=== PATIENT | male | born 1950 | race Caucasian/White ===

== ENCOUNTER 2017-08-21 10:58 | Emergency (ER) | payer OTHER ==
[~2017-08-21] VITALS: Ht 172.7 cm; Wt 78.2 kg
[~2017-08-21 10:58] MED LIST: CLON.3 PO
[2017-08-21 11:35] VITALS: BP 144/87
== END 2017-08-21 12:14 | disposition home or self-care (01) ==
LOC: EMS 10:59
DX: L03.116 Cellulitis of left lower limb (principal); I10 Essential (primary) hypertension; F17.210 Nicotine dependence, cigarettes, uncomplicated
CPT/HCPCS: 99283

== ENCOUNTER 2024-01-27 13:16 | Emergency (ER) | payer MEDICAID, OTHER ==
[~2024-01-27] VITALS: Ht 172.7 cm; Wt 79.5 kg
[2024-01-27 13:47] VITALS: BP 145/61; PULSE 98; RESP 19; TEMP 98.6; O2SAT 98
[2024-01-27 14:28] LABS: BASOPHILS % (AUTO) 1.1 % (0.0-2.0); HEMATOCRIT 37.3 % (41-53); HEMOGLOBIN 12.1 g/dL (13.5-17.5); LYMPHOCYTES # (AUTO) 0.7 K/uL (1.0-4.8); LYMPHOCYTES % (AUTO) 14.5 % (22.0-44.0); MEAN CORPUSCULAR HEMOGLOBIN 26.8 pg (26.0-34.0); MEAN CORPUSCULAR HGB CONC 32.3 G/dL (31.0-37.0); MEAN CORPUSCULAR VOLUME 83 fL (80-100); MONOCYTES # (AUTO) 0.7 K/uL (0.1-1.0); MONOCYTES % (AUTO) 14.1 % (2.0-9.0); NEUTROPHILS # (AUTO) 3.4 K/uL (1.8-7.7); NEUTROPHILS % (AUTO) 66.3 % (40.0-70.0); PLATELET COUNT (AUTO) 226 K/uL (150-450); RED CELL DISTRIBUTION WIDTH 15.1 % (11.5-14.5); WHITE BLOOD COUNT (AUTO) 5.2 K/uL (4.5-11.0)
[2024-01-27 14:39] LABS: ANION GAP 9 mmol/L (8-16); CALCIUM, TOTAL 8.5 mg/dL (8.8-10.5); CARBON DIOXIDE 28 mmol/L (22-29); CHLORIDE 104 mmol/L (98-107); CREATININE 0.88 mg/dL (0.60-1.30); GLOMERULAR FILTR. RATE CALC > 60 mL/min (>60); GLUCOSE,RANDOM 126 mg/dL (70-110); POTASSIUM 3.8 mmol/L (3.5-5.1); SODIUM SERUM 141 mmol/L (136-145); UREA NITROGEN, BLOOD 27 mg/dL (7-18)
[2024-01-27 14:48] LABS: ALCOHOL, BLOOD (SERUM) < 3 mg/dL (0-10)
[2024-01-27] MEDS ORDERED: ACET-66 PO (17:40)
[2024-01-27] MEDS ORDERED: GABA-1181 PO (17:40)
[2024-01-27] MEDS ORDERED: METH-659 PO (17:40)
[2024-01-27] MEDS: METHOCARBAMOL 500 MG TABLET PO ONE (17:49)
[2024-01-27] MEDS: ACETAMINOPHEN 500 MG TABLET PO ONE (17:49)
== END 2024-01-27 18:04 | disposition home or self-care (01) ==
LOC: EMS 13:18
DX: I87.2 Venous insufficiency (chronic) (peripheral) (principal); I10 Essential (primary) hypertension; F17.210 Nicotine dependence, cigarettes, uncomplicated; F15.90 Other stimulant use, unspecified, uncomplicated; Z90.49 Acquired absence of other specified parts of digestive tract; Z98.890 Other specified postprocedural states
CPT/HCPCS: 99283; 80048; 85025; 36415; G0480

== ENCOUNTER 2024-05-22 12:29 | Emergency (ER) | payer MEDICARE, MEDICAID ==
[~2024-05-22] VITALS: Ht 172.7 cm; Wt 76.6 kg
[~2024-05-22 12:29] MED LIST changes: +ASPI-1444 PO; +ATOR40TA71 PO; +CARV3 PO; -CLON.3 PO; +LACT10SO10 PO; +LOSA-417 PO; +SPIR-37 PO
[2024-05-22 12:36] VITALS: TEMP 98
[2024-05-22 12:40] VITALS: BP 120/61; PULSE 74; RESP 18; O2SAT 97
== END 2024-05-22 13:00 | disposition left against medical advice (07) ==
LOC: EMS 12:29
DX: F41.9 Anxiety disorder, unspecified (principal); Z53.21 Procedure and treatment not carried out due to patient leaving prior to being seen by health care provider